=== PATIENT | male | born 2000 | race Caucasian/White ===

== ENCOUNTER 2018-03-10 12:28 | Emergency (ER) | payer MEDICAID ==
[~2018-03-10] VITALS: Ht 175.3 cm; Wt 102.4 kg
[~2018-03-10 12:28] MED LIST: CYCL-1 PO; DEXT15SY PO; LIDO20SO16 PO
[2018-03-10 12:39] VITALS: BP 135/81
[2018-03-10] MEDS ORDERED: AMOX500C2 PO (13:31)
== END 2018-03-10 13:47 | disposition home or self-care (01) ==
LOC: ER 12:28
DX: J32.0 Chronic maxillary sinusitis (principal); M25.532 Pain in left wrist
CPT/HCPCS: 73110; 99284